=== PATIENT | male | born 1995 | race Two or more races ===

== ENCOUNTER 2018-12-08 19:32 | Emergency (ER) | payer OTHER ==
--- NOTE | 2018-12-08 19:41 | EDPHY ---
General Time Seen by Provider: 12/08/18 19:41 Narrative: CLINICAL IMPRESSION: Left middle finger skin avulsion ASSESSMENT/PLAN: Patient is a 22-year-old male with no significant medical history who presents to the emergency department with complaints of a laceration sustained just prior to arrival. Patient is not toxic appearing, he is in no distress. Physical examination reveals 1 cm circumferential complete skin avulsion of the left middle distal phalanx pad. There is no evidence of deep structure involvement, neurovascular compromise, foreign body, or bony involvement. The wound was not contaminated, tetanus status was up-to-date. The patient was actively bleeding, light tourniquet was applied with adequate hemostasis. A digital block was performed with complete resolution of his discomfort. The wound was copiously irrigated, dressed with Surgicel and a sterile dressing. Hemostasis was achieved and on re-evaluation prior to discharge there was no evidence of recurrent or uncontrolled bleeding. An x-ray was obtained, no evidence of bony involvement. Will start prophylactic antibiotics. Wound care instructions reviewed, hand referral given. Return precautions discussed. ED PROCEDURES: Procedure: Digital block. A digital block was performed for what indication. The block was performed with 0.5% bupivacaine without epinephrine and 1% lidocaine. The patient experienced complete pain relief. The procedure was performed by myself. ED COURSE: 194: Discussed with Dr. Reynolds 2019: Patient with moderate amount of bleeding from the wound bed, light tourniquet placed with cessation of bleeding. CHIEF COMPLAINT: Left middle finger laceration HPI: Patient is a 22-year-old male with no significant medical history who presents to the emergency department with complaints of a left middle finger laceration sustained just prior to arrival he was at work. 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 Patient does report a moderate amount of bleeding, he has been able to get under control. He denies any numbness or tingling at the distal digit, denies any reduced range of motion. He is right-hand dominant, he is up-to- date on his tetanus status. He denies any other injury or complaint. ROS: Otherwise negative, please see HPI. PHYSICAL EXAM: General Appearance: Well-developed, well-appearing and in no acute distress. Skin: Warm, dry, no rashes. See below Upper Extremities: Right upper extremity is unremarkable. Intact distal pulses , Full range of motion intact, no tenderness, no ecchymosis or edema. Left middle finger reveals a 1 cm circumferential complete skin avulsion of the distal pad with fat exposure, active oozing along the wound bed. No bony or tenderness exposure. Two point discrimination is intact distally. The nail plate and nail bed are intact. The interphalangeal joint was tested independently with excellent strength and range of motion. Left upper extremity is otherwise unremarkable. Lower Extremities: Intact distal pulses, No edema, No tenderness, No cyanosis, full range of motion intact, No calf tenderness bilaterally. Neuro: Alert and oriented x3, Cranial nerves 2-12 grossly intact. No focal deficit. Psych: Normal mood, normal affect. No agitation. MEDICAL DECISION MAKING: Patient was seen independently. Secondary supervising physician at time of evaluation was Dr. Reynolds, he did not evaluate this patient. Diagnosis: Left middle finger skin avulsion. Summary: See Assessment and Plan for summary of ED visit Independent visualization of images, tracing, or specimens: Yes. Decision to obtain medical records or history from someone other than the patient: No Review / Summarize previous medical records: Yes Discussed patient with another provider: Yes, Dr. Reynolds Patient Progress: Stable, discharged. - Diagnostics Imaging Results: Imaging Impressions Hand X-Ray 12/08/18 19:40 Impression: Soft tissue injury over the distal third finger, with no acute osseous abnormality identified. - History Smoking Status: Never smoked - Objective Vital Signs: Initial Vital Signs Temperature (C) 36.8 C 12/08/18 19:34 Heart Rate 61 12/08/18 19:34 Respiratory Rate 18 12/08/18 19:34 Blood Pressure 147/98 H 12/08/18 19:34 O2 Sat (%) 99 12/08/18 19:34 O2 Delivery Mode Room Air Allergies/Adverse Reactions: No Known Allergies Allergy (Verified 12/08/18 19:33) Home Medications: Medication Instructions Recorded Cephalexin [Keflex (*)] 500 mg PO Q6H 5 Days cap 12/08/18 Strattera 12/08/18 Medications Given: Discontinued Medications Cephalexin HCl (Keflex) 500 mg PO EDNOW ONE PRN Reason: Protocol Stop: 12/08/18 20:34 Last Admin: 12/08/18 20:40 Dose: 500 mg Departure - Departure Disposition: Home, Routine, Self-Care Clinical Impression: Avulsion of skin Condition: Good Instructions: Skin Avulsion (ED) Additional Instructions: DISCHARGE INSTRUCTIONS FROM YOUR PROVIDER Thank you for visiting our emergency department today. Please keep in mind that discharge from the emergency department does not mean that there is nothing wrong - it simply means that we have not identified an emergency condition that requires further evaluation or treatment in the hospital. You should always plan to follow up with primary care for re-evaluation of your condition in the next 2-3 days. Please be sure to follow up with your workman's Comp. Leave your dressing in place until Monday, you may remove the outer most portion. Please try to avoid soaking the area however you may shower. Please reapply dressing to keep your finger protected. You have been prescribed Keflex, please continue for the next 5 days. Elevate hand as much as possible for the next 24 hours to decrease the swelling and pain. For pain control: You may take Tylenol, I recommend 500-1000 mg every 6-8 hours as needed. Take with food and a full glass of water. Stop taking if this is upsetting you stomach. Do not exceed 4000 mg in a 24 hr period. You may also take ibuprofen, recommend 400 mg every 6 hr. Take with food and a full glass of water. Stop taking if this upsets your stomach. Do not exceed 2400 mg in a 24 hr period. As discussed the laceration was not deep enough to visualize the tendon today. It is unlikely a tendon injury is present and your tendon function is currently intact. However, if at any time, you feel a pop and have difficulty bending or straightening the finger, you should seek re-evaluation from a hand specialist urgently. Return for signs of wound infection ie: redness, swelling, drainage, foul odor, red streaks, fever, chills, pain, bleeding, if the stitches pop, if the wound opens, for numbness, tingling, weakness, discoloration of the finger, coolness of the finger, inability to move or bend the finger or for any other new, worsening or worrisome symptoms. People present with illnesses and injuries in different ways, and it is always possible that we have missed something. Again, thank you for choosing our emergency department. We hope that you feel better. Referrals: ROBERTO CARLOS MCALLISTER [Primary Care Provider] - As per Instructions Thomas Sanchez MD [Medical Doctor] - 2-3 days, call for appt. Prescriptions: Cephalexin [Keflex (*)] 500 mg PO Q6H 5 Days cap
[2018-12-08] MEDS ORDERED: CEPHALEXIN 500 MG CAP PO ONE (20:33)
[2018-12-08 21:11] VITALS: BP 138/82
== END 2018-12-08 21:10 | disposition home or self-care (01) ==
PROC: 3E0T3BZ Introduction of Anesthetic Agent into Peripheral Nerves and Plexi, Percutaneous Approach (ICD-10-PCS; principal; 2018-12-08)
DX: S61.213A Laceration without foreign body of left middle finger without damage to nail, initial encounter (principal); W26.0XXA Contact with knife, initial encounter; Y93.G1 Activity, food preparation and clean up; Y99.0 Civilian activity done for income or pay